=== PATIENT | female | born 1965 | race Caucasian/White ===

== ENCOUNTER 2016-08-11 18:31 | Emergency (ER) | payer BC ==
[2016-08-11] MEDS ORDERED: DIPH/PERTUSS(ACELL)/TETANUS VAC/PF 0.5 ML SYR (>=10YO) IM ONE (20:23)
--- NOTE | 2016-08-11 20:24 | ER Document Report ---
ED Medical Screen (RME) - General Chief Complaint: Laceration Stated Complaint: LACERATION TO LEFT FOOT Time Seen by Provider: 08/11/16 20:19 Notes: Dropped a mirror while cleaning out her garage, mirror broke and lacerated left lateral foot. I have greeted and performed a rapid initial assessment of this patient. A comprehensive ED assessment and evaluation of the patient, analysis of test results and completion of the medical decision making process will be conducted by additional ED providers. TRAVEL OUTSIDE OF THE [place] IN LAST 30 DAYS: No Past Medical History Renal/ Medical History: Denies: Hx Peritoneal Dialysis Physical Exam - Vital signs Vitals: Temp Pulse Resp BP Pulse Ox 98.0 F 67 18 128/73 H 98 08/11/16 18:36 08/11/16 18:36 08/11/16 18:36 08/11/16 18:36 08/11/16 18:36 Course - Vital Signs Vital signs: Temp Pulse Resp BP Pulse Ox 98.0 F 67 18 128/73 H 98 08/11/16 18:36 08/11/16 18:36 08/11/16 18:36 08/11/16 18:36 08/11/16 18:36
[2016-08-11] MEDS ORDERED: LIDOCAINE 1% INJ-PF (10 MG/ML) 30 ML SDV INJ ONE (20:35)
--- NOTE | 2016-08-11 20:36 | ER Document Report ---
HPI - HPI Patient complains to provider of: foot lac Onset: This afternoon Onset/Duration: Sudden Quality of pain: Achy Pain Level: 2 Context: Pt states that she dropped a mirror which broke and cut her left foot. Patient with laceration to dorsal aspect of left foot. Associated Symptoms: Other - foot lac Exacerbated by: Movement Relieved by: Denies Similar symptoms previously: No Recently seen / treated by doctor: No - ROS ROS below otherwise negative: Yes Systems Reviewed and Negative: Yes All other systems reviewed and negative - MUSCULOSKELETAL Musculoskeletal: REPORTS: Extremity pain - DERM Skin Color: Normal Skin Problems: Laceration Past Medical History - General Information source: Patient - Social History Smoking Status: Never Smoker Frequency of alcohol use: None Drug Abuse: None Lives with: Family Family History: Reviewed & Not Pertinent Patient has suicidal ideation: No Patient has homicidal ideation: No Renal/ Medical History: Denies: Hx Peritoneal Dialysis GI Medical History: Reports: Hx Gastroesophageal Reflux Disease Psychiatric Medical History: Reports: Hx Anxiety Past Surgical History: Reports: Hx Cholecystectomy, Hx Hysterectomy, Hx Orthopedic Surgery Vertical Provider Document - CONSTITUTIONAL Agree With Documented VS: Yes Exam Limitations: No Limitations General Appearance: WD/WN, No Apparent Distress - INFECTION CONTROL TRAVEL OUTSIDE OF THE [place] IN LAST 30 DAYS: No - HEENT HEENT: Atraumatic, Normocephalic - NECK Neck: Normal Inspection - RESPIRATORY Respiratory: No Respiratory Distress O2 Sat by Pulse Oximetry: 98 - CARDIOVASCULAR Pulses: Normal: Dorsalis pedis - MUSCULOSKELETAL/EXTREMETIES Musculoskeletal/Extremeties: MAEW, FROM, Tender - Left Dorsal foot tenderness - NEURO Level of Consciousness: Awake, Alert, Appropriate Motor/Sensory: No Motor Deficit - DERM Integumentary: Warm, Dry, Laceration - irregular 2.5 cm lac to lateral dorsal aspect of left foot Course - Vital Signs Vital signs: Temp Pulse Resp BP Pulse Ox 98.0 F 67 18 128/73 H 98 08/11/16 18:36 08/11/16 18:36 08/11/16 18:36 08/11/16 18:36 08/11/16 18:36 Procedures - Laceration/Wound Repair Left Foot Wound length (cm): 2.5 Wound's Depth, Shape: Irregular, Flap Anesthetic type: 1% Lidocaine Wound explored: Clean Wound Debrided: Minimal Wound Repaired With: Sutures Suture Size/Type: 5:0, Nylon Number of Sutures: 8 Layer Closure?: No Post-procedure wound care: Sterile dressing applied Post-procedure NV exam normal: Yes Complications: No Discharge - Discharge Clinical Impression: Laceration of foot Qualifiers: Encounter type: initial encounter Laterality: left Qualified Code(s): S91.312A - Laceration without foreign body, left foot, initial encounter Condition: Stable Disposition: HOME, SELF-CARE Instructions: Antibiotic Ointment Protection (OM), Laceration Care (OM), Tetanus Immunization Given ([facility]), Prophylactic Antibiotic (OM) Additional Instructions: Return immediately for any new or worsening symptoms Followup with your primary care provider, call tomorrow to make a followup appointment Suture removal in 9 days Prescriptions: Clindamycin HCl [Cleocin 300 mg Capsule] 300 mg PO TID #21 capsule Ref[facility]: [facility] [Provider Group] - Follow up as needed
[2016-08-11] MEDS ORDERED: CLINDAMYCIN HCL 150 MG CAPSULE PO ONE (22:10)
[2016-08-11 22:27] VITALS: BP 119/76
== END 2016-08-11 20:30 | disposition home or self-care (01) ==
LOC: ER 18:31
PROC: 0HQNXZZ Repair Left Foot Skin, External Approach (ICD-10-PCS; principal; 2016-08-11)
DX: S91.312A Laceration without foreign body, left foot, initial encounter (principal); W25.XXXA Contact with sharp glass, initial encounter; Z90.49 Acquired absence of other specified parts of digestive tract; Z90.710 Acquired absence of both cervix and uterus; Z23 Encounter for immunization
CPT/HCPCS: 99282; 90471; 90715; 12001; J3490